=== PATIENT | female | born 1980 | race Caucasian/White ===

== ENCOUNTER → 2018-01-01 | Outpatient (CLI) | payer OTHER ==
[~2018-01-01] MED LIST: FLUO.1OPO OD; IBUP400 PO; PENVK500 PO; TRAM50 PO
== END | disposition home or self-care (01) ==
LOC: LAB SHORT 12:03 → LAB EV 12:03
DX: J02.9 Acute pharyngitis, unspecified (principal)
CPT/HCPCS: 87070

== ENCOUNTER → 2018-08-04 | Outpatient (CLI) | payer OTHER | END | disposition home or self-care (01) | LOC: LAB SHORT 13:02 → LAB EV 13:02 | DX: N39.0 Urinary tract infection, site not specified (principal) | CPT/HCPCS: 87077; 87086; 87186 ==

== ENCOUNTER → 2021-04-01 | Outpatient (CLI) | payer OTHER ==
[2021-04-01 09:58] LABS: BASOPHILS ABSOLUTE AUTO 0.08 K/mm3 (0.00-0.23); BASOPHILS PERCENT AUTO 1 % (0-2); EOSINOPHILS PERCENT AUTO 4 % (0-6); Hemoglobin 13.2 g/dL (11.5-16.0); IMMATURE GRAN ABSOLUTE AUTO 0.05 K/mm3 (0.00-0.10); IMMATURE GRAN PERCENT AUTO 1 % (0-1); LYMPHOCYTES ABSOLUTE AUTO 3.23 K/mm3 (0.84-5.20); LYMPHOCYTES PERCENT AUTO 33 % (21-46); MONOCYTES ABSOLUTE AUTO 0.86 K/mm3 (0.16-1.47); MONOCYTES PERCENT AUTO 9 % (4-13); Mean Corpuscular HGB 28.1 pg (26.0-34.0); Mean Corpuscular HGB Conc 33.8 g/dL (31.5-36.5); Mean Corpuscular Volume 83 fL (80-100); Mean Platelet Volume 8.7 fL (9.1-12.4); NEUTROPHILS ABSOLUTE AUTO 5.21 K/mm3 (1.96-9.15); NEUTROPHILS PERCENT AUTO 53 % (41-73); Platelet Count 371 K/mm3 (150-400); RDW Coefficient Variation 12.6 % (11.7-14.2); Red Blood Cell Count 4.69 M/mm3 (3.80-5.20); White Blood Cell Count 9.83 K/mm3 (4.00-11.30)
== END | disposition home or self-care (01) ==
LOC: LAB 09:56 → LAB SHORT 09:56
PROVIDERS: Physician Assistant
DX: K57.92 Diverticulitis of intestine, part unspecified, without perforation or abscess without bleeding (principal)
CPT/HCPCS: 85025

== ENCOUNTER 2022-02-14 16:50 | Emergency (ER) | payer OTHER ==
[~2022-02-14] VITALS: Ht 149.9 cm; Wt 79.8 kg
[2022-02-14] MEDS ORDERED: BENADRYL25 MG PO (17:20)
[2022-02-14] MEDS ORDERED: METPRE4DP PO (17:20)
== END 2022-02-14 18:33 | disposition home or self-care (01) ==
LOC: ER 16:50
DX: L23.7 Allergic contact dermatitis due to plants, except food (principal); Z88.5 Allergy status to narcotic agent
CPT/HCPCS: 99282

== ENCOUNTER 2025-02-18 10:42 | Day surgery (SDC) | payer OTHER ==
[2025-02-18] VITALS (14 sets, daily range): BP systolic 105–144; BP diastolic 73–94
[~2025-02-18] VITALS: Ht 152.4 cm; Wt 86.6 kg
[~2025-02-18 10:42] MED LIST changes: +BENADRYL25 MG PO; +CeFAZolin Sodium 2,000 MG in NS 100 ML IV SCH; +Chlorhexidine Mouth Care 15 ML UDC MT SCH; +IBUP200 PO; +METPRE4DP PO; +Ropivacaine 0.5% HCl/Pf 123.125 MG,EPINEPHrine HCL 0.25 MG,Ketorolac Tromethamine 15 MG... INFIL SCH; +Tranexamic Acid 100 ML IV SCH
[2025-02-18] MEDS ORDERED: EXCEDRIN PM HE1 EACH (11:17)
[2025-02-18] MEDS ORDERED: Bupivacaine 0.5% Inj 10 ML Vial ONE (11:17)
[2025-02-18] MEDS ORDERED: Prochlorperazine Edisylate 10 mg Vial IV PRN (11:20)
[2025-02-18] MEDS ORDERED: Magnesium Hydroxide Conc 10 ML UDC PO PRN (11:30)
[2025-02-18] MEDS ORDERED: Ondansetron HCl 2 MG / ML 2ML Vial IV PRN ×2 (11:30→14:35)
[2025-02-18] MEDS ORDERED: Metoclopramide HCl 5MG / ML 2ML Vial IV PRN (11:30)
[2025-02-18] MEDS ORDERED: HYDROmorphone HCl/Pf 1MG SYR IV PRN ×3 (11:30→14:35)
--- NOTE | 2025-02-18 11:48 | NUR ---
Ambulatory in Day Surgery W/ USE OF WALKER Pre-Op teaching done. Pt verbalizes understanding. History, Chart, Medications and Allergies reviewed before start of procedure.Patient confirms NPO status and agrees with scheduled surgery. Patient States Post-Procedure ride home has been arranged. Patient reports completing Chlorhexadine shower X2 prior to admission to hospital.
[2025-02-18] MEDS ORDERED: Ondansetron HCl 2 MG / ML 2ML Vial ONE (11:53)
[2025-02-18] MEDS ORDERED: Metoclopramide HCl 5MG / ML 2ML Vial ONE (11:53)
[2025-02-18] MEDS ORDERED: Ketorolac Tromethamine 30mg Vial ONE (11:53)
[2025-02-18] MEDS ORDERED: Dexamethasone Sod Phos 10 MG/ML 1ML VIAL ONE (11:53)
[2025-02-18] MEDS ORDERED: DiphenhydrAMINE HCl 50 MG/ML 1ML Vial ONE (11:53)
[2025-02-18] MEDS ORDERED: HYDROmorphone HCl/Pf 1MG SYR ONE (11:54)
[2025-02-18] MEDS ORDERED: Ketamine HCl 100 MG / ML 5ML Vial ONE (11:54)
--- NOTE | 2025-02-18 12:49 | NUR ---
OXYCONTIN NOT GIVEN PER ORDER DUE TO ITCHING REACTION TO OXYCODONE. DR MCHUGH NOTIFIED. NO NEW ORDERS.
[2025-02-18] MEDS ORDERED: Glycopyrrolate 0.2 MG/ML 5ML VIAL ONE (13:42)
[2025-02-18] MEDS ORDERED: Albuterol 2.5 MG/3 ML VIAL INH PRN (14:35)
[2025-02-18] MEDS ORDERED: ePHEDrine Sulfate 50 MG/ML 1ML Injection IV PRN (14:35)
[2025-02-18] MEDS ORDERED: FentaNYL Citrate 50 MCG/ML 2 ML Injection IV PRN ×2 (14:35)
[2025-02-18] MEDS ORDERED: FentaNYL Citrate 50 MCG/ML 2 ML Injection ONE (16:05)
[2025-02-18] MEDS ORDERED: Tranexamic Acid 100 ML IV ONE (16:07)
--- NOTE | 2025-02-18 16:42 | NUR ---
02/18/25 Ashlee Harrell WHEN REMOVING IOBAN DRAPE AT THE END OF THE CASE, THE PATIENT'S SKIN TORE ON THE RIGHT UPPER THIGH. SMALL SKIN TEAR WAS DRESSED WITH A 4X4 AND A TEGADERM.
--- NOTE | 2025-02-18 17:48 | NUR ---
PT TO ROOM 218 FROM PACU. POST OP VS STARTED AND STABLE. IV TO SL. PT DRINKING WATER. DRESSING CDI RIGHT HIP PRINEO DRESSING. ABLE TO WIGGLE TOES AND ELEVATE LEG OFF BED. WILL CONTINUE TO MONITOR.
[2025-02-18] MEDS ORDERED: HYDROcodone 5-APAP 325 TAB PO PRN (18:10)
[2025-02-18] MEDS ORDERED: CeFAZolin Sodium 2,000 MG in NS 100 ML IV SCH (21:00)
[2025-02-19] MEDS ORDERED: Ketorolac Tromethamine 15mg Vial IV SCH
[2025-02-19 00:12] VITALS: BP 103/78
[2025-02-19 05:54] VITALS: BP 118/77
--- NOTE | 2025-02-19 06:18 | NUR ---
NOC SUMMARY- PT PAIN MANAGED WELL. PT AMBULATORY AND VOIDING. PT TOLERATING PO. PT EAGER TO GO HOME. CALL LIGHT IN REACH.
[2025-02-19 06:44] LABS: BASOPHILS ABSOLUTE AUTO 0.03 K/mm3 (0.00-0.23); BASOPHILS PERCENT AUTO 0 % (0-2); EOSINOPHILS ABSOLUTE AUTO 0.00 K/mm3 (0.00-0.68); EOSINOPHILS PERCENT AUTO 0 % (0-6); Hematocrit 31.8 % (33.0-51.0); Hemoglobin 10.5 g/dL (11.5-16.0); IMMATURE GRAN ABSOLUTE AUTO 0.10 K/mm3 (0.00-0.10); IMMATURE GRAN PERCENT AUTO 1 % (0-1); LYMPHOCYTES ABSOLUTE AUTO 1.72 K/mm3 (0.84-5.20); LYMPHOCYTES PERCENT AUTO 9 % (21-46); MONOCYTES ABSOLUTE AUTO 1.20 K/mm3 (0.16-1.47); MONOCYTES PERCENT AUTO 6 % (4-13); Mean Corpuscular HGB Conc 33.0 g/dL (31.5-36.5); Mean Corpuscular Volume 84 fL (80-100); NEUTROPHILS ABSOLUTE AUTO 15.82 K/mm3 (1.96-9.15); NEUTROPHILS PERCENT AUTO 84 % (41-73); NRBC ABSOLUTE 0.00 K/mm3 (0.00-0.02); NRBC Auto 0.0 /100 WBC (0.0-0.2); Platelet Count 308 K/mm3 (150-400); RDW Coefficient Variation 14.6 % (11.7-14.2); RDW Standard Deviation 44.8 fL (35.1-46.3)
[2025-02-19 07:05] LABS: Anion Gap 6.0 mmol/L (3-11); Blood Urea Nitrogen 14.0 mg/dL (8-24); CO2, Blood 26.0 mmol/L (21-32); Calcium, Blood 8.3 mg/dL (8.5-10.1); Chloride, Blood 108.0 mmol/L (98-108); Creatinine, Blood 0.61 mg/dL (0.40-1.00); Glucose, Blood 129.0 mg/dL (70-99); Magnesium, Blood 1.9 mg/dL (1.6-2.4); Potassium, Blood 4.0 mmol/L (3.5-5.5); Sodium, Blood 136.0 mmol/L (136-145)
[2025-02-19 07:33] VITALS: BP 124/73
[2025-02-19] MEDS ORDERED: ASPI81CH PO (08:26)
[2025-02-19] MEDS ORDERED: ACET500 PO (08:26)
[2025-02-19] MEDS ORDERED: DOCU100 PO (08:27)
[2025-02-19] MEDS ORDERED: OXYC5 PO (08:27)
--- NOTE | 2025-02-19 10:26 | NUR ---
DISCHARGE NOTE POD 1 R SHAINA. VSS. PAIN MANAGED W/ PRESCRIBED MEDICATION AND COOLING DEVICE. PRINEO DX TO R HIP C/D/I W/ MINIMAL BRUISING AROUND INCISION SITE. VOIDING. TOLERATING PO INTAKE. AMBULATING W/ SBA FWW GB. PHYSICAL THERAPY EVAL COMPLETED - PATIENT CLEARED TO [facility]. PRESCRIBED MEDICATIONS ELECTRONICALLY SENT TO [facility] BY MD MCHUGH PER LENDING CONSULTANTPAULETTE [facility]. IV REMOVED. WRITTEN AND VERBAL EDUCATION PROVIDED - PATIENT STATES UNDERSTANDING. PERSONAL BELONGINGS WITH PATIENT. PATIENTs FRIEND TO TRANSPORT PATIENT HOME. PATIENT TRANSFERRED TO VEHICLE VIA AT APPROX 1025.
== END 2025-02-19 10:23 | disposition home or self-care (01) ==
LOC: ORSCMMR 10:42 → ORD 11:30 → ORSCMMR 12:00 → SURS 17:38 → ORSCMMR 17:38 → SURS 02-19 10:23 → ORSCMMR 02-19 10:23
PROVIDERS: Orthopaedic Surgery
PROC: 0SR90JA Replacement of Right Hip Joint with Synthetic Substitute, Uncemented, Open Approach (ICD-10-PCS; principal; 2025-02-18 12:00)
DX: M16.11 Unilateral primary osteoarthritis, right hip (principal); I10 Essential (primary) hypertension; Z87.891 Personal history of nicotine dependence; E66.9 Obesity, unspecified; Z68.37 Body mass index [BMI] 37.0-37.9, adult
CPT/HCPCS: 36415; 72170; 80048; 83735; 85025; 97116; 97161; 97530; A9270; C1713; C1776; J0165; J0690; J0735; J1100; J1171; J1200; J1885; J2405; J2704; J2765; J2795; J3010; J3373; J7050; J7120